=== PATIENT | female | born 1995 | race American Indian/Alaskan Native ===

== ENCOUNTER 2016-09-02 20:56 | Emergency (ER) | payer MEDICAID ==
[2016-09-02] MEDS ORDERED: Sodium Chloride 0.9% 1,000 ML IV ONE (21:15)
[2016-09-02] MEDS ORDERED: Ondansetron 4 MG/2 ML SDV IV ONE (21:16)
[2016-09-02 21:45] LABS: CHLORIDE,CL 102 mmol/L (101-111); SODIUM,NA 138 mmol/L (135-145)
[2016-09-02] MEDS ORDERED: Iopamidol 612 MG/ML 75 ML Bottle IVPUSH ONE (22:06)
[2016-09-02] MEDS ORDERED: fentaNYL 100 MCG/2 ML SDV IVPUSH ONE (22:07)
[2016-09-03 00:05] VITALS: BP 110/56
--- NOTE | 2016-09-03 00:15 | EDM.PDOC ---
ED HPI GI/ABDOMINAL - General Chief Complaint: Abdominal Pain Stated Complaint: STOMACH PAINS Time Seen by Provider: 09/02/16 21:10 Source of Information: Reports: Patient History Limitations: Reports: No limitations - History of Present Illness INITIAL COMMENTS - FREE TEXT/NARRATIVE: c/o RLQ abdominal pain since ths am, does not note anything that makes worse or better, no problems with urination, vomited x 2 after eating, chills no fever. LMP 08/09. Quality: Reports: ache Severity: moderate Associated Symptoms (-Female): Reports: nausea/vomiting - Related Data Allergies/ADRs: Allergies Allergy/AdvReac Type Severity Reaction Status Date / Time No Known Allergies Allergy Verified 09/02/16 20:59 Home Meds: Home Meds ALPRAZolam [Xanax] 0.5 mg PO BID 09/02/16 [History] Sertraline [Zoloft] 100 mg PO DAILY 09/02/16 [History] Zolpidem [Ambien] 5 mg PO BEDTIME 09/02/16 [History] Past Medical History - Past Health History Medical/Surgical History: Denies Medical/Surgical History Psychiatric History: Reports: PTSD Social & Family History - Family History Family Medical History: Noncontributory - Tobacco Use Smoking Status *Q: Current Every Day Smoker Years of Tobacco use: 4 Packs/Tins Daily: 0.5 - Caffeine Use Caffeine Use: Reports: Coffee, Soda - Recreational Drug Use Recreational Drug Use: No ED ROS GENERAL - Review of Systems Review Of Systems: See Below Constitutional: Reports: chills HEENT: Reports: No symptoms Respiratory: Reports: No Symptoms Cardiovascular: Reports: No symptoms GI/Abdominal: Reports: Abdominal pain (has not changed location or intensity), Vomiting (x2). Denies: Decreased appetite : Reports: no symptoms Musculoskeletal: Reports: no symptoms Skin: Reports: no symptoms Neurological: Reports: No Symptoms Psychiatric: Reports: Anxiety ED EXAM, GI/ABD - Physical Exam Exam: See Below Exam Limited By: No limitations General Appearance: alert, mild distress Eyes: bilateral: EOMI Ears: normal external exam Nose: normal inspection Throat/Mouth: Normal inspection, Normal lips Head: atraumatic, normocephalic Neck: normal inspection, supple, full range of motion Respiratory/Chest: no respiratory distress, lungs clear, normal breath sounds Cardiovascular: normal peripheral pulses, regular rate, rhythm GI/Abdominal: normal bowel sounds, soft, tenderness (RLQ). No: tympanic bowel sounds, guarding Back Exam: normal inspection. No: CVA tenderness (L), CVA tenderness (R) Extremities: normal inspection Neurological: alert, oriented Course - Vital Signs Last Recorded V/S: Last Vital Signs Temp 98.8 F 09/02/16 23:07 Pulse 80 09/03/16 00:04 Resp 18 09/03/16 00:04 BP 110/56 L 09/03/16 00:04 Pulse Ox 99 09/03/16 00:04 - Orders/Labs/Meds Labs: Laboratory Tests 09/02/16 09/02/16 09/02/16 Range/Units 21:10 21:18 21:18 WBC 11.8 H (5.0-10.0) 10^3/uL RBC 4.87 (4.2-5.4) 10^6/uL Hgb 13.9 (12.0-16.0) g/dL Hct 40.8 (37.0-47.0) % MCV 83.8 (80-100) fL MCH 28.5 (27.0-34.0) pg MCHC 34.1 (33.0-35.0) g/dL Plt Count 455 H (150-450) 10^3/uL Neut % (Auto) 73.9 (42.2-75.2) % Lymph % (Auto) 18.2 L (20.5-50.1) % Page % (Auto) 6.3 (2-8) % Eos % (Auto) 1.1 (1.0-3.0) % Baso % (Auto) 0.5 (0.0-1.0) % Sodium 138 (135-145) mmol/L Potassium 3.1 L (3.6-5.0) mmol/L Chloride 102 (101-111) mmol/L Carbon Dioxide 26.0 (21.0-31.0) mmol/L Anion Gap 13.1 BUN 8 (7-18) mg/dL Creatinine 0.8 (0.6-1.3) mg/dL Est Cr Clr Drug Dosing 88.36 mL/min Estimated GFR (MDRD) > 60 BUN/Creatinine Ratio 10.00 Glucose 102 (74-105) mg/dL Calcium 9.7 (8.4-10.2) mg/dl Total Bilirubin 0.5 (0.2-1.0) mg/dL AST 31 (10-42) IU/L ALT 24 (10-60) IU/L Alkaline Phosphatase 113 (42-121) IU/L C-Reactive Protein < 0.5 (0.0-1.3) mg/dL Total Protein 8.1 (6.7-8.2) g/dl Albumin 4.4 (3.2-5.5) g/dl Globulin 3.7 Albumin/Globulin Ratio 1.19 Amylase 52 (28-100) U/L Lipase 24 (22-51) U/L HCG, Qual Negative Urine Color (YELLOW) Urine Appearance (CLEAR) Urine pH (5.0-9.0) Ur Specific [place] (1.005-1.030) Urine Protein (NEGATIVE) Urine Glucose (UA) (NEGATIVE) Urine Ketones (NEGATIVE) Urine Occult Blood (NEGATIVE) Urine Nitrite (NEGATIVE) Urine Bilirubin (NEGATIVE) Urine Urobilinogen (0.2-1.0) mg/dL Ur Leukocyte Esterase (NEGATIVE) Urine RBC /HPF Urine WBC (0-5/HPF) /HPF Ur Epithelial Cells /HPF Amorphous Sediment (0/HPF) /HPF Urine Bacteria (0-FEW/HPF) /HPF Urine Mucus /LPF Urine Opiates Screen (NEGATIVE) Ur Oxycodone Screen (NEGATIVE) Urine Methadone Screen (NEGATIVE) Ur Barbiturates Screen (NEGATIVE) U Tricyclic Antidepress (NEGATIVE) Ur Phencyclidine Scrn (NEGATIVE) Ur Amphetamine Screen (NEGATIVE) U Methamphetamines Scrn (NEGATIVE) Urine MDMA Screen (NEGATIVE) U Benzodiazepines Scrn (NEGATIVE) Urine Cocaine Screen (NEGATIVE) U Marijuana (THC) Screen (NEGATIVE) 09/02/16 09/02/16 Range/Units 21:19 21:19 WBC (5.0-10.0) 10^3/uL RBC (4.2-5.4) 10^6/uL Hgb (12.0-16.0) g/dL Hct (37.0-47.0) % MCV (80-100) fL MCH (27.0-34.0) pg MCHC (33.0-35.0) g/dL Plt Count (150-450) 10^3/uL Neut % (Auto) (42.2-75.2) % Lymph % (Auto) (20.5-50.1) % Page % (Auto) (2-8) % Eos % (Auto) (1.0-3.0) % Baso % (Auto) (0.0-1.0) % Sodium (135-145) mmol/L Potassium (3.6-5.0) mmol/L Chloride (101-111) mmol/L Carbon Dioxide (21.0-31.0) mmol/L Anion Gap BUN (7-18) mg/dL Creatinine (0.6-1.3) mg/dL Est Cr Clr Drug Dosing mL/min Estimated GFR (MDRD) BUN/Creatinine Ratio Glucose (74-105) mg/dL Calcium (8.4-10.2) mg/dl Total Bilirubin (0.2-1.0) mg/dL AST (10-42) IU/L ALT (10-60) IU/L Alkaline Phosphatase (42-121) IU/L C-Reactive Protein (0.0-1.3) mg/dL Total Protein (6.7-8.2) g/dl Albumin (3.2-5.5) g/dl Globulin Albumin/Globulin Ratio Amylase (28-100) U/L Lipase (22-51) U/L HCG, Qual Urine Color Dark yellow (YELLOW) Urine Appearance Cloudy (CLEAR) Urine pH 6.0 (5.0-9.0) Ur Specific [place] 1.025 (1.005-1.030) Urine Protein Negative (NEGATIVE) Urine Glucose (UA) Negative (NEGATIVE) Urine Ketones Trace H (NEGATIVE) Urine Occult Blood Negative (NEGATIVE) Urine Nitrite Negative (NEGATIVE) Urine Bilirubin Negative (NEGATIVE) Urine Urobilinogen 1.0 (0.2-1.0) mg/dL Ur Leukocyte Esterase Negative (NEGATIVE) Urine RBC 0-5 /HPF Urine WBC 0-5 (0-5/HPF) /HPF Ur Epithelial Cells Many H /HPF Amorphous Sediment Few (0/HPF) /HPF Urine Bacteria Few (0-FEW/HPF) /HPF Urine Mucus Many H /LPF Urine Opiates Screen Negative (NEGATIVE) Ur Oxycodone Screen Negative (NEGATIVE) Urine Methadone Screen Negative (NEGATIVE) Ur Barbiturates Screen Negative (NEGATIVE) U Tricyclic Antidepress Negative (NEGATIVE) Ur Phencyclidine Scrn Negative (NEGATIVE) Ur Amphetamine Screen Negative (NEGATIVE) U Methamphetamines Scrn Negative (NEGATIVE) Urine MDMA Screen Negative (NEGATIVE) U Benzodiazepines Scrn Positive H (NEGATIVE) Urine Cocaine Screen Negative (NEGATIVE) U Marijuana (THC) Screen Positive H (NEGATIVE) Meds: Medications Discontinued Medications Generic Name Dose Route Start Last Admin Trade Name Matt PRN Reason Stop Dose Admin Fentanyl 25 mcg 09/02/16 22:07 09/02/16 22:21 Sublimaze IVPUSH 09/02/16 22:08 25 mcg ONETIME ONE Administration Sodium Chloride 1,000 mls @ 999 mls/hr 09/02/16 21:15 09/02/16 21:25 Normal Saline IV 09/02/16 22:15 999 mls/hr .BOLUS ONE Administration Iopamidol 75 ml 09/02/16 22:06 09/02/16 23:36 Isovue-300 (61%) IVPUSH 09/02/16 22:07 75 ml ONETIME ONE Administration Ondansetron HCl 4 mg 09/02/16 21:16 09/02/16 21:25 Zofran IV 09/02/16 21:17 4 mg ONETIME ONE Administration - Radiology Interpretation Free Text/Narrative:: Abdomen pelvis negative. - Re-Assessments/Exams Free Text/Narrative Re-Assessment/Exam: 09/03/16 02:48 Pain and nausea improved, home/. Departure - Departure Time of Disposition: 00:13 Disposition: Home, Self-Care 01 Condition: good Clinical Impression: Abdominal pain Qualifiers: Abdominal location: generalized Qualified Code(s): R10.84 - Generalized abdominal pain Instructions: Abdominal Pain, Adult, [id number] Forms: ED Department Discharge Additional Instructions: light bland diet start liquids first in small amounts if tolerate my slowly progress tylenol 650mg every 4 hours for discomfort follow up if symptoms worsen,
== END 2016-09-03 00:27 | disposition home or self-care (01) ==
LOC: DL.ED 20:56
DX: R10.84 Generalized abdominal pain (principal); F43.10 Post-traumatic stress disorder, unspecified; F17.200 Nicotine dependence, unspecified, uncomplicated; R11.0 Nausea; Z79.899 Other long term (current) drug therapy
CPT/HCPCS: 36415; 74177; 80053; 80305; 81001; 82150; 83690; 84703; 85025; 86140; 96361; 96374; 96375; 99284; J2405; J3010; J7030; Q9967

== ENCOUNTER 2016-11-14 04:36 | Emergency (ER) | payer MEDICAID ==
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
[2016-11-14 05:51] LABS: CHLORIDE,CL 103 mmol/L (101-111); SODIUM,NA 139 mmol/L (135-145)
[2016-11-14] MEDS ORDERED: Sodium Chloride 0.9% 1,000 ML IV ONE (06:08)
[2016-11-14 06:31] VITALS: BP 94/56
== END 2016-11-14 08:12 | disposition home or self-care (01) ==
LOC: DL.ED 04:36
DX: F10.10 Alcohol abuse, uncomplicated (principal); F17.210 Nicotine dependence, cigarettes, uncomplicated; Z79.899 Other long term (current) drug therapy; Y90.6 Blood alcohol level of 120-199 mg/100 ml
CPT/HCPCS: 36415; 70450; 71010; 72125; 80053; 80305; 81001; 81025; 85025; 96360; 99285; G0480; J7030

== ENCOUNTER 2017-10-11 02:25 | Emergency (ER) | payer MEDICAID ==
[2017-10-11 02:39] VITALS: BP 120/70
[2017-10-11] MEDS ORDERED: Ondansetron 4 MG/2 ML SDV IV ONE (02:56)
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
[2017-10-11 03:14] LABS: CHLORIDE,CL 103 mmol/L (101-111); SODIUM,NA 134 mmol/L (135-145)
--- NOTE | 2017-10-12 15:55 | US ---
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 In addition to a "complete previa posteriorly" the placenta is inhomogeneously dense with characteristic placental lakes and oth er avascular areas that may represent infarcts. Obstetrical monitoring and follow-up requested.
== END 2017-10-11 05:40 | disposition left against medical advice (07) ==
LOC: DL.ED 02:25
DX: O20.9 Hemorrhage in early pregnancy, unspecified (principal); O99.332 Smoking (tobacco) complicating pregnancy, second trimester; F17.210 Nicotine dependence, cigarettes, uncomplicated; Z79.899 Other long term (current) drug therapy; Z3A.16 16 weeks gestation of pregnancy
CPT/HCPCS: 36415; 76815; 80053; 84702; 85025; 96374; 99284; J2405

== ENCOUNTER 2019-03-24 04:50 | Inpatient (IN) | payer SELFPAY ==
[2019-03-24] MEDS ORDERED: Penicillin G Potassium 5,000,000 Unit Vial ONE (06:07)
[2019-03-24] MEDS ORDERED: Carboprost Tromethamine 250 MCG/1 ML Amp IM PRN ×2 (06:10→09:11)
[2019-03-24] MEDS ORDERED: Lidocaine 1% 30 ML SDV INJECT PRN (06:10)
[2019-03-24] MEDS ORDERED: Lactated Ringers 1,000 ML IV ONE (06:10)
[2019-03-24] MEDS ORDERED: Tranexamic Acid 1,000 MG in Sodium Chloride 0.9% 100 ML IV PRN ×2 (06:10→09:11)
[2019-03-24] MEDS ORDERED: Ondansetron 4 MG/2 ML SDV IV PRN (06:10)
[2019-03-24] MEDS ORDERED: Penicillin G Potassium 5 MILLUNITS in Sodium Chloride 0.9% 100 ML IV ONE (06:10)
[2019-03-24] MEDS ORDERED: Methylergonovine 0.2 MG/1 ML Amp IM PRN (06:10)
[2019-03-24] MEDS ORDERED: Acetaminophen 325 MG Tab PO PRN ×2 (06:10→09:11)
[2019-03-24] MEDS ORDERED: Misoprostol 400 MCG (4 X 100 MCG TAB) RECTAL PRN ×2 (06:10→09:11)
[2019-03-24] MEDS ORDERED: Oxytocin/Normal Saline 30 UNIT/500 ML BAG IV SCH (06:15)
[2019-03-24] MEDS: Lactated Ringers 1,000 ML IV SCH ×2 (06:30→07:19)
[2019-03-24] MEDS ORDERED: Betamethasone Acetate/Betamethasone Sod Phosphate 30 MG/5 ML MDV IM STA (06:31)
--- NOTE | 2019-03-24 06:36 | PCM.SN ---
- Free Text/Narrative Note: OB History and Physical 03/24/19 Chief Complaint: leaking fluid HPI: aRmos is a 23 yo at estimated 33w0d based on LMP (33w4d based on US today) who presents with complaints of leaking fluid. She reports leaking that started yesterday and has slowed down today. Contractions started tonight, about 1.5 hours prior to arrival and have remained strong and every 2 minutes since they started. She reports she "can handle them, but they hurt" and her last baby hurt more. She delivered her last baby about 34w and noted she arrived at labor and delivery complete and had a baby shortly after arrival. She has had no care this . She reports active movement. ROS: Negative for headache, nausea, vomiting, diarrhea, fever, chills, abdominal pain, hematuria, dysuria, contractions, loss of fluid or bleeding per vagina. Allergies: NKDA Medications: ranitidine Medical Hx: none Surgical Hx: none Family Hx: dad was born prematurely, no known genetic disorders, bleeding or clotting disorders OB Hx: First baby was born in [place] on 02/19/[birth year] around 34w EGA from spontaneous labor. Baby girl weighing [id number]. Social Hx: Currently living with a friend at [address] [place], [place] [address] FOB is Daniel Booth who is dad for first baby as well. Admits to using weed yesterday, denies any other recreational drug use this . Current cigarette smoker. Denies alcohol use. Labs: labs drawn on admission Spec: Nitrazine positive UDS: oxycodone, amph/meth US: EGA 33w4d Anterior placenta Vertex presentation Scant fluid, maybe a 1cm pocket Physical Exam: Vitals: BP 128/81, HR 88, Temp 98.9 Gen: No distress CV: Well-perfused, 2+ distal pulses, regular rate and rhythm, no audible murmurs Resp: Non-labored, symmetrical chest expansion, clear to auscultation Abd: gravid, soft, non tender Ext: Moves all extremities, no edema. SVE: 4/50/-2 FHT: 140, moderate variability, accelerations present, no decelerations. CTX: Q 2 mins Assessment: Ramos is a 23 yo at estimated 33w0d based on LMP (33w4d based on US today) who presents with premature rupture of membranes in active labor. Cat I Strip. Plan: - Admit to labor and delivery - Routine cares - NICU notified and en route - Betamethasone IM - Penicillin prophylaxis for unknown GBS - OB labs ordered and drawn - Confirmatory tests for UDS - Will follow closely Tonia Mckinnon MD
--- NOTE | 2019-03-24 08:24 | PCM.DEL ---
L & D Note - General Info Date of Service: 03/24/19 (0801) - Delivery Note Labor: Spontaneous Delivery Outcome: Livebirth Infant Delivery Method: Spontaneous Vaginal Delivery-Single Delivery Mode: Spontaneous Presentation: Left Occiput Anterior (BETHANY) Nuchal Cord: None Anesthesia Type: None Amniotic Fluid Description: Clear Episiotomy Type: None Laceration: None Placenta: Intact, Spontaneous Cord: 3 Vessels Estimated Blood Loss: 150 [place]: Bulb Syringe, Stimulated, Warmed, Warmer Used Provider: Milan Gaytan Score 1 min: 9 Score 5 min: 7 Second Stage Interventions: Reports: Pushing Effectively Delivery Comments (Free Text/Narrative):: Ramos is a 23 yo at 33w0d EGA based on LMP (33w4d on US today) who presented with premature rupture of membranes and found to be in active labor. Category 1 tracing upon admission. She was dilated to 4 cm upon admission. She progressed without augmentation. Spontaneous rupture of membranes was "sometime the day before" with clear fluid. She was complete at 0759. She began pushing at approximately 0759. Delivered a liveborn female at 0801. Vigorous infant with spontaneous cry. APGARS 9 and 7 respectively. weight 4lb 11oz (2125g). Placenta delivered spontaneously intact with a 3 vessel cord. IV Pitocin was started shortly after delivery of the placenta. EBL 150 mL. Intact perineum. Hemostasis confirmed. Mother and doing well. NICU is en route for prematurity and should be arriving shortly. - General Info Date of Service: 03/24/19 - Patient Data Vitals - Most Recent: Last Vital Signs Temp 98.5 F 03/24/19 07:15 Pulse 112 H 03/24/19 07:15 Resp 16 03/24/19 07:15 BP 119/58 L 03/24/19 07:15 Pulse Ox 98 03/24/19 04:59 Weight - Most Recent: 58.967 kg - Problem List Review Problem List Initiated/Reviewed/Updated: Yes - Assessment Assessment:: Ramos is a 23 yo G3 now [id number] who delivered a female via over intact perineum who is doing well. - Plan Plan:: Plan: - routine cares - will follow for UDS confirmatory testing - pt aware of NICU transfer for prematurity Tonia Mckinnon MD
[2019-03-24] MEDS ORDERED: Oxytocin 10 Units/1 ML SDV IM PRN (09:11)
[2019-03-24] MEDS ORDERED: Docusate Sodium 100 MG Cap PO PRN (09:11)
[2019-03-24] MEDS ORDERED: Sodium Chloride 0.9% 10 ML Syringe FLUSH PRN (09:11)
[2019-03-24] MEDS ORDERED: Simethicone 80 MG Tab.Chew PO PRN (09:11)
[2019-03-24] MEDS ORDERED: Benzocaine/Menthol 20%-0.5% Spray 56 GM Canister TOP PRN (09:11)
[2019-03-24] MEDS ORDERED: Ibuprofen 800 MG Tab PO PRN (09:11)
[2019-03-24] MEDS ORDERED: Penicillin G Potassium 3 MILLUNITS in Sodium Chloride 0.9% 100 ML IV SCH (10:00)
[2019-03-24] MEDS ORDERED: Prenatal Multivitamin with Calcium/Folic Acid/Iron Tab PO SCH (10:00)
[2019-03-24 10:44] VITALS: BP 114/70; PULSE 100
== END 2019-03-24 18:08 | disposition left against medical advice (07) | DRG 807 ==
LOC: DL.OBCHECK 04:50 → DL.OB 06:26 → OBSVTOIN 08:01
PROVIDERS: ADMIT Family Medicine; ATTEND Family Medicine
PROC: 10E0XZZ Delivery of Products of Conception, External Approach (ICD-10-PCS; principal; 2019-03-24)
PROC: 3E02340 Introduction of Influenza Vaccine into Muscle, Percutaneous Approach (ICD-10-PCS; 2019-03-24)
DX: O42.013 Preterm premature rupture of membranes, onset of labor within 24 hours of rupture, third trimester (principal); Z37.0 Single live birth; Z3A.33 33 weeks gestation of pregnancy; Z23 Encounter for immunization; O99.334 Smoking (tobacco) complicating childbirth; F17.200 Nicotine dependence, unspecified, uncomplicated
CPT/HCPCS: 36415; 59025; 59409; 76815; 80305-QW; 80307; 81001; 83986; 85027; 86592; 86762; 86803; 86850; 86900; 86901; 87077; 87081; 87086; 87186; 87210; 87340; 87389; 87491; 87591; A9270-GY; G0480; J0702; J2540; J2590; J7050; J7120

== ENCOUNTER 2020-04-04 03:26 | Emergency (ER) | payer MEDICAID, OTHER ==
[2020-04-04 03:39] VITALS: BP 141/91; PULSE 130
== END 2020-04-04 03:45 | disposition left against medical advice (07) ==
LOC: DL.ED 03:26
DX: Z53.21 Procedure and treatment not carried out due to patient leaving prior to being seen by health care provider (principal)

== ENCOUNTER 2021-05-07 08:32 | Emergency (ER) | payer SELFPAY ==
[2021-05-07 08:57] VITALS: BP 133/79; PULSE 98
[2021-05-07 09:38] LABS: CORONAVIRUS COVID-19 NAA POSITIVE (NEGATIVE)
== END 2021-05-07 11:21 | disposition left against medical advice (07) ==
LOC: DL.ED 08:32
DX: Z53.21 Procedure and treatment not carried out due to patient leaving prior to being seen by health care provider (principal)
CPT/HCPCS: 0240U